=== PATIENT | female | born 1965 | race African-American/Black ===

== ENCOUNTER 2018-11-11 10:03 | Day surgery (SDC) | payer OTHER ==
[2018-11-10 12:49] VITALS: BMI 30.1
[2018-11-11 11:17] VITALS: TEMP 97.1
[2018-11-11 11:45] VITALS: PULSE 58
[2018-11-11 12:17] LABS: INR 1.06 (0.83-1.09); PROTHROMBIN TIME (PATIENT) 12.5 SEC (9.7-13.0)
[2018-11-11 12:20] LABS: ACTIVATED PTT 33.4 SECONDS (25.2-36.5)
[2018-11-11 12:22] LABS: ALBUMIN 3.7 g/dl (3.4-5.0); BILIRUBIN,DIRECT 0.1 mg/dL (0.0-0.2); BILIRUBIN,TOTAL 0.4 mg/dL (0.2-1); TOT PROT 6.8 g/dl (6.4-8.2)
[2018-11-11 12:23] VITALS: BP 112/72
[2018-11-11 12:23] LABS: BASO % 0.9 % (0-2.0); EOS % 3.9 % (0-4.5); LYMPH % 51.5 % (8-40); MCH 30.8 pg (25.7-33.7); MCHC 34.3 g/dl (32.0-36.0); MEAN CELL VOLUME 89.8 fl (80-96); MEAN PLT VOLUME 9.1 fl (7.5-11.1); MONO % 10.9 % (3.8-10.2); NEUT % 32.8 % (42.8-82.8); PLATELET COUNT 215 K/MM3 (134-434); RBC 4.23 M/mm3 (3.60-5.2); RDW 12.8 % (11.6-15.6); WHITE BLOOD COUNT 3.5 K/mm3 (4.0-10.0)
--- NOTE | 2018-11-12 17:19 | PATH ---
Surgical Pathology Report Patient Name: CONNIE GUERRA [facility]. Rec. #: [id number] /Age/Gender: 1965 (Age: 52) / F Account: [id number] Location: [facility]-ENDOSCOPY Taken: 11/11/2018 Received: 11/11/2018 Reported: 11/12/2018 Physicians: Maico Diehl D.O. Specimen(s) Received RECTAL POLYP Clinical History Colon screening Postoperative diagnosis: Polyp, hemorrhoids Final Diagnosis RECTAL, POLYP, BIOPSY: TUBULAR ADENOMA. Electronically Signed Loida Alvarez M.D. Gross Description Received in formalin, labeled "biopsy rectal polyp" is a terrell, irregular portion of soft tissue measuring 0.3 cm. in greatest dimension. The specimen is submitted in toto in one cassette. 11/11/201811/11/2018
== END 2018-11-11 12:30 | disposition home or self-care (01) ==
LOC: JASU-ENDO 10:03
PROVIDERS: ATTEND Internal Medicine Gastroenterology
PROC: 0DBP8ZX Excision of Rectum, Via Natural or Artificial Opening Endoscopic, Diagnostic (ICD-10-PCS; principal; 2018-11-11 10:30)
DX: Z12.11 Encounter for screening for malignant neoplasm of colon (principal); K62.1 Rectal polyp; K64.8 Other hemorrhoids
CPT/HCPCS: 36415; 80076; 85025; 85610; 85730; 88305-TC